=== PATIENT | female | born 1970 | race Caucasian/White ===

== ENCOUNTER 2019-05-23 08:36 | Inpatient (IN) ==
[2019-05-23] MEDS ORDERED: DILAUDID IV ONE ×6 (08:46→10:30)
[2019-05-23] MEDS ORDERED: ZOFRAN IM ONE (08:47)
[2019-05-23 09:12] LABS: BASO# 0.01 X1000 (0.0-0.2); BASO% 0.1 % (0.0-0.8); EOS# 0.03 X1000 (0.0-0.7); EOS% 0.4 % (0.0-10.0); HEMATOCRIT 36.9 % (37.0-47.0); HEMOGLOBIN 12.6 g/dL (12.0-16.0); LYMPH# 1.81 X1000 (1.2-3.4); LYMPH% 22.2 % (20.5-51.1); MCH 28.7 PG (27-31); MCHC 34.1 g/dL (33-37); MCV 84.1 FL (81-99); MONO# 0.52 X1000 (0.11-0.59); MONO% 6.4 % (1.7-9.3); MPV 8.8 FL (7.4-10.4); NEUT# 5.79 X1000 (1.4-6.5); NEUT% 70.9 % (42.2-75.2); PLT 434 X1000 (130-400); RBC 4.39 XMIL (4.2-5.4); WBC 8.16 X1000 (4.8-10.8)
[2019-05-23] MEDS ORDERED: ZOFRAN IV ONE (09:12)
[2019-05-23 09:28] LABS: AGAP 14; ALB/GLOB RATIO 1.4; ALBUMIN 4.5 g/dL (3.5-5.0); ALKALINE PHOSPHATASE 94 U/L (32-104); BUN 15 mg/dL (8-22); CALCIUM 9.1 mg/dL (8.8-10.2); CHLORIDE 100 mmol/L (98-107); COSMO 277; CREATININE 0.7 mg/dL (0.5-0.9); ESTIMATED GFR > 60; GLUCOSE 136 mg/dL (70-104); GOT 20 U/L (10-30); GPT 11 U/L (10-36); POTASSIUM 3.7 mmol/L (3.5-5.1); SODIUM 137 mmol/L (136-145); TCO2 23 mmol/L (25-35); TOTAL BILIRUBIN 0.34 mg/dL (0.20-1.00); TOTAL PROTEIN 7.8 g/dL (6.3-8.3)
--- NOTE | 2019-05-23 09:34 | PROVIDER DOCUMENTATION ---
HPI-General Adult - General Chief Complaint: Hip Injury Stated Complaint: fall Time Seen by Provider: 05/23/19 08:46 Source: patient Allergies/Adverse Reactions: Patient Allergies Allergy/AdvReac Type Severity Reaction Status Date / Time No Known Allergies Allergy Verified 05/23/19 09:14 Home Medications: Home Medication List Medication Instructions Recorded Confirmed Last Taken Type Gabapentin 600 mg PO TID 05/19/19 05/19/19 05/19/19 History Oxycodone HCl/Acetaminophen 1 ea PO Q6H PRN 05/19/19 05/19/19 3 Days Ago History [Oxycodone-Acetaminophen 10-325] ~05/16/19 Tamoxifen [Nolvadex] 20 mg PO DAILY 05/19/19 05/23/19 05/21/19 History - History of Present Illness -Gen Adult Nature of Presenting Problems: This is a 48yo female who presents via EMS after ground level fall. Per the patient and EMS the patient was walking up to her desk and then fell and bystanders heard a pop. The EMS reports that the hip did look disfigured at the time of arrival. The fall occurred at approximately 7:45am this morning. The patient denies any head injury. Location of Pain/Injury: reports: other (Hip) Pain Radiation: reports: no radiation Severity: reports: severe Onset/Duration: reports: 2 days ago Timing: reports: still present Context/Activities at Onset: reports: light activity (walking) Modifying Factors: improves with: movement (worse with movement) Associated Symptoms: reports: other (no bleeding or blood) Review of Systems - Adult - REVIEW OF SYSTEMS - ADULT Constitutional: reports: fever Eyes: denies: eye pain Ears, Nose, Mouth & Throat: denies: throat swelling Cardiovascular: denies: chest pain Gastrointestinal: denies: abdominal pain Genitourinary: denies: dysuria Neurological: denies: headache/migraines Psychiatric: denies: alcohol/drug dependence Hematologic/Lymphatic: reports: no symptoms reported, other (no bleeding noted) Past History - Adult - PAST MEDICAL HISTORY-ADULT Review of Records: reports: Old Records Reviewed Major Childhood Illnesses: reports: denies history Cardiovascular: reports: denies history Respiratory: reports: denies history Gastrointestinal: reports: denies history Genitourinary: reports: denies history Musculoskeletal: reports: denies history 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) Psychiatric: reports: anxiety Endocrine/Immune: reports: cancer (breast cancer) - IMMUNIZATION STATUS Childhood Immunizations: See Nurse Assessment Flu Vaccine: See Nurse Assessment - SOCIAL HISTORY Smoking: denies Substance Use: none/never (denies) Alcohol Use Frequency: never (denies) Physical Exam-General - CONSTITUTIONAL General Appearance: moderate distress - EYES Eyes: negative: scleral icterus - HEAD, EARS, NOSE, MOUTH & THROAT HENMT: normocephalic/atraumatic, moist mucous membranes - RESPIRATORY Respiratory: normal breath sounds - CARDIOVASCULAR Cardiovascular: tachycardia - GASTROINTESTINAL (ABDOMEN) Abdominal Exam: non tender, soft - MUSCULOSKELETAL Extremity: other (no gross deformity of the left hip noted, patient is able to move her left lower extremity and sensation is intact below the hip) - SKIN Integumentary: other (no gross skin opening noted) - NEUROLOGIC Neurologic: grossly normal - PSYCHIATRIC Psych/Mental Status: anxious Progress - PLAN OF CARE/RESULTS Progress/Plan/Lab Results: Vital Signs - 8 hr 05/23/19 08:53 Temperature 97.7 F Pulse Rate 122 H Respiratory Rate 17 Blood Pressure 119/101 O2 Sat by Pulse Oximetry 100 Laboratory Results - last 24 hr 05/23/19 05/23/19 08:50 08:50 WBC 8.16 RBC 4.39 Hgb 12.6 Hct 36.9 L MCV 84.1 MCH 28.7 MCHC 34.1 RDW Std Deviation 13.0 Plt Count 434 H MPV 8.8 Immature Gran % (Auto) 0.0 Neut % (Auto) 70.9 Lymph % (Auto) 22.2 [place] % (Auto) 6.4 Eos % (Auto) 0.4 Baso % (Auto) 0.1 Immature Gran # (Auto) 0.00 Neut # (Auto) 5.79 Lymph # (Auto) 1.81 [place] # (Auto) 0.52 Eos # (Auto) 0.03 Baso # (Auto) 0.01 Sodium 137 Potassium 3.7 Chloride 100 Carbon Dioxide 23 L Anion Gap 14 BUN 15 Creatinine 0.7 Estimated GFR/1.73 m2 > 60 BUN/Creatinine Ratio 21 Glucose 136 H Calculated Osmolality 277 Calcium 9.1 Total Bilirubin 0.34 AST 20 ALT 11 Alkaline Phosphatase 94 Total Protein 7.8 Albumin 4.5 Globulin 3.3 Albumin/Globulin Ratio 1.4 Orders Category Date Time Status XRAY PELVIS W/HIP 2-3VW LT [RAD] Stat Exams 05/23/19 08:49 Ordered CBC WITH ELECTRONIC DIFF [HEME] Stat Lab 05/23/19 08:50 Completed Chem22 [COMPREHENSIVE METABOLIC PANEL] [CHEM] Stat Lab 05/23/19 08:50 Received Hydromorphone [Dilaudid] Med 05/23/19 08:46 Discontinued 0.5 mg IV NOW ONE Hydromorphone [Dilaudid] Med 05/23/19 09:25 Discontinued 0.5 mg IV NOW ONE Ondansetron [Zofran] Med 05/23/19 08:47 Discontinued 4 mg IM NOW ONE Ondansetron [Zofran] Med 05/23/19 09:12 Discontinued 4 mg IV NOW ONE Result Diagrams: 05/23/19 08:50 05/23/19 08:50 - REASSESSMENT Reassessment #1 Status: unchanged (Patient with continued pain despite dilauded treatment, will continue to try pain management. Patient reports anxiety as well. Patient has chronic anxiety and did not take her paxil this morning. Will give low dose lorazepam. Discussed case with orthopedics who will see the patient, and d iscussed with hospitalist team who have accepted the patient.) Departure - Departure Date of Disposition Decision: 05/23/19 Time of Disposition Decision: 10:25 DIAGNOSIS: Hip fracture Qualifiers: Encounter type: initial encounter Fracture type: closed Laterality: left Qualified Code(s): S72.002A - Fracture of unspecified part of neck of left femur, initial encounter for closed fracture Disposition: ADMITTED INPATIENT 09 Certified Medical Emergency: Emergent Condition: Fair Referrals and Follow-Ups: Kendrick Hardin MD [Primary Care Provider] - - Critical Care Note This patient required my direct & personal management of CC.: No Attestation - Physician/ MARY ELLEN Attestation Patient care was provided by Advanced Practice Provider:: No The physician spent face to face time with patient:: Yes Advanced Practice Provider documentation review:: Supervising physician onsite and consulted in the evaluation and care of this patient. The physician did have a face to face encounter with the patient.
--- NOTE | 2019-05-23 09:49 | Diag Imaging Result Doc PS360 ---
EXAM: XRAY PELVIS W/HIP 2-3VW LT INDICATION: Fall TECHNIQUE: 3 views COMPARISON: None. FINDINGS: There is an acute fracture through the superior shaft of the left femur with significant varus angulation. A nondisplaced fracture line extends into the intertrochanteric region near the base of the lesser trochanter. No other fracture or dislocation is appreciated. There is soft tissue edema around the fracture. IMPRESSION: Fracture of the proximal femoral shaft as described. Electronically signed by Stefano Rose 05/23/2019 9:46 AM
--- NOTE | 2019-05-23 10:10 | Diag Imaging Result Doc PS360 ---
EXAM: CHEST-1 VIEW 05/23/2019 HISTORY: Fall TECHNIQUE: AP chest at 0943 COMMENT: There is a Port-A-Cath on the right with its tip in the right atrium. There are multiple healing rib fractures on the left. No evidence of pneumothorax or pleural fluid collection is present. The heart size and pulmonary vascularity are within normal limits. There are apparently bilateral breast implants. IMPRESSION: No evidence of acute pulmonary disease. Healing rib fractures on the left. Electronically signed by Dejon Bethea 05/23/2019 10:08 AM
[2019-05-23] MEDS ORDERED: ATIVAN IV ONE ×2 (10:19→15:23)
[2019-05-23] MEDS ORDERED: TYLENOL PO PRN (10:24)
[2019-05-23] MEDS ORDERED: ZOFRAN IV PRN (10:24)
[2019-05-23 11:24] LABS: CALCIUM 9.2 mg/dL (8.8-10.2)
[2019-05-23] MEDS ORDERED: DEMEROL IV ONE (11:30)
[2019-05-23] MEDS: DILAUDID IV PRN ×2 (11:47→13:53)
[2019-05-23] MEDS: NS 1,000 ML IV SCH (11:47)
[2019-05-23] MEDS: DURAGESIC 75 MICROGM/HR PATCH TD SCH (11:47)
--- NOTE | 2019-05-23 13:16 | HISTORY AND PHYSICAL ---
PRIMARY CARE PROVIDER: Dr. Lopez. PRIMARY ONCOLOGIST: Dr. Hardin. CHIEF COMPLAINT: Right hip pain. HISTORY OF PRESENT ILLNESS: Ms. Kenia Batista is a 48-year-old female with a medical history of left breast cancer with metastasis to the sternum, left hip, thoracic and lumbar spine, and the left rib area, along with skin and lymph nodes diagnosed in 2018. Claims to be cancer- free as of 03/16/2019. This is followed by Dr. Hardin. She did have chemo and she is on immunotherapy treatment currently. She is a very active person. 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 She is on chronic pain medication for that. Has issues with anxiety. Apparently around 3 and a half weeks ago, some time around April 29, she apparently had gotten on her son's bicycle that was too small. She felt her knee go out and developed pain from that. So, a week later she presented to [facility] on the 06 of May with these complaints. There, she had a pelvic CT that did not show any acute bony injury. It did show septal sclerosis in the region of a previous bony metastatic disease, but otherwise no fracture. She was sent home, re-presented to [facility] because despite all the pain medication she takes at home, she is still not having relief. On top of her Percocet and fentanyl patch, she was also taking Advil 600 mg every 6 hours with still no relief. She re-presented here at [facility] ER on the 19 of May with continued complaints. No imaging was performed. She was set up to see an orthopedic surgeon in [place]; she was unable to tell us who that was, who apparently told her it was a hip rotator strain due to the fact that no imaging showed fracture. She was walking today, this morning at around 0730 hours, when she heard a pop in the left hip and surrounding people also heard it. She went to the ground; it was painful. She was brought into the emergency department. Imaging of the left hip showed a fracture of the left proximal femoral shaft. Dr. Mcarthur was notified and she is going to be preop for surgical repair. It is noted on a nuclear bone scan at one point in time, she did have metastasis in the sternum of the left hip and also 1 spot in the left rib; that was November of 2017. Her chest x-ray at this time also shows healing left rib fracture, so it appears that she is going to be at risk for fractures in the areas where she had metastatic disease, which also includes the lumbar and the thoracic spine and the sternum. PAST MEDICAL HISTORY: 1. Left breast cancer with metastasis to the skin, lymph nodes, and the bone; it includes the sternum, left hip, left rib, thoracic lumbar region. This was hormone-induced cancer. Found cancer in October 2017 and found to be cancer-free March 2019 2. Anxiety. 3. 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 4. Likely chronic constipation. SURGICAL HISTORY: 1. Left breast biopsy. No surgical extraction of the breast cancer. 2. Right wrist cyst, removed. 3. Bilateral tubal ligation. 4. Breast augmentation prior to breast cancer diagnosis. 5. Right chest port. SOCIAL HISTORY: She lives at home with her 10-year-old and 13-year-old children. Her was disabled and ; so her kids receive benefits. She currently does not work. Her activity level is walking 8 miles per day. Denies tobacco, alcohol or illicit drug use. FAMILY HISTORY: Mother's side of the family is osteoporosis; her grandmother had osteoporosis. On the father's side, there was prostate cancer that was metastasized to the bone. ALLERGIES: No known drug allergies. HOME MEDICATIONS: 1. Fentanyl patch 75 mcg every 3 days. 2. Neurontin 600 mg p.o. t.i.d. 3. Tamoxifen 20 mg p.o. daily. 4. Percocet 10 one tab p.o. every 6 hours p.r.n. REVIEW OF SYSTEMS: Fourteen point review of systems are complete and now are negative, except for those mentioned above in the HPI. Pain is 10/10 left hip with some nausea associated; otherwise, no other complaints. PHYSICAL EXAMINATION: VITAL SIGNS: Temperature 98.7 degrees, heart rate 113, respiratory rate 18, blood pressure 146/91, O2 saturation 99% on room air. The patient is 5 feet 5 inches tall, 148 pounds. BMI is 24.6. GENERAL: Ms. Kenia Batista is a 48-year-old female. She is in severe pain. Has difficulty with conversation secondary to the pain she is experiencing, but she is oriented and is able answer questions appropriately. She does have severe anxiety at this time. HEENT: Atraumatic, normocephalic. Pupils equal, round, reactive to light. Extraocular movements intact. Mucous membranes are dry. Face is red. NECK: Trachea midline. CARDIOVASCULAR: S1, S2. Tachycardic rate and rhythm. No rubs, gallops, or murmurs. There is no lower extremity edema. She has +2 dorsalis and radial pulses. Negative JVD for carotid bruits. PULMONARY: Clear to auscultation. Bilateral breath sounds. No accessory muscle use or work of breathing noted. GI: Soft, nontender, nondistended. Positive bowel sounds x4. EXTREMITIES: Refuses to move her lower extremity secondary to the severe pain in the left lower extremity. Her foot is turned and leg is turned inward. Full range of motion of the upper extremities with 5/5 strength. NEUROLOGIC: A and O x3. Follows commands. Sensory is intact, but tingling and numb in her hands and feet. SKIN: Warm, dry, intact. LABORATORY DATA: White blood cells 8000, hemoglobin 12, hematocrit 36, platelet count 434. Sodium 137, potassium 3.7, BUN 15, creatinine 0.7, glucose 136, calcium 9.2, phosphorus is 2.0, bilirubin 0.34. AST 20, ALT 11, albumin is 4.5, PTH is 64. IMAGING STUDIES: Left hip x-ray, two to three-view, fracture of the proximal femoral shaft. Chest x-ray: No evidence of acute pulmonary disease. Apparently, there are multiple healing rib fractures on the left. ASSESSMENT AND PLAN: 1. Left hip fracture including the proximal femoral shaft, likely secondary to recent history of metastatic disease and osteoporosis. Will get a vitamin D level. Dr. Mcarthur is being consulted for surgical repair. She will be placed in Naylor's traction, bed rest, and will likely need physical therapy postoperative. 2. Acute pain on top of chronic pain syndrome. We will continue her fentanyl patch, her Percocet. Added Dilaudid intravenous as needed. Gave a 1-time dose of Demerol and is still having intractable pain currently. 3. Anxiety. She has gotten Ativan in the emergency room. She is asking for Valium. 4. History of left breast cancer with metastatic disease to the sternum, the left ribs, the left hip, the lumbar and the thoracic spine, apparently also to the skin and lymph nodes, but apparently she is cancer-free. Dr. Pillai has been following her. She is on tamoxifen and will continue that. 5. Chronic opioid use likely with chronic constipation. We will add a stool softener to her regimen. 6. Deep venous thrombosis prophylaxis. Will likely be on low-dose Lovenox and probably low-dose Xarelto, but that will be evaluated by Orthopedic Surgery. Dictated by CAREY Hernandes for Khang Cunningham MD cc: CAREY Hernandes MD Gregory S. Cheatham, MD Sammy Becdach, MD
[2019-05-23 14:26] LABS: URINE SOURCE CATH
[2019-05-23 14:29] LABS: BILIRUBIN URINE NEGATIVE (NEGATIVE); BLOOD URINE NEGATIVE (NEGATIVE); COLOR YELLOW; GLUCOSE URINE NEGATIVE (NEGATIVE); KETONE URINE NEGATIVE (NEGATIVE); LEUKOCYTES URINE NEGATIVE (NEGATIVE); NITRITE URINE NEGATIVE (NEGATIVE); PROTEIN URINE NEGATIVE (NEGATIVE); SP GRAVITY URINE 1.014; TURBIDITY URINE CLEAR (CLEAR); UR EPITHELIAL CELLS <10 /HPF (<10); URINE BACTERIA NEGATIVE /HPF; URINE RBC <10 /HPF (<10); URINE WBC <10 /HPF (<10); UROBILINOGEN URINE NORMAL (NORMAL)
[2019-05-23] MEDS ORDERED: DIPRIVAN 1% ONE (17:12)
[2019-05-23] MEDS ORDERED: KEFZOL 1 GM/D5W 1 GM/50 ML IVPB ONE (17:12)
[2019-05-23] MEDS ORDERED: FENTANYL ONE (17:14)
[2019-05-23] MEDS ORDERED: VERSED ONE (17:16)
[2019-05-23] MEDS ORDERED: SUFENTA ONE ×2 (17:45→18:44)
[2019-05-23] MEDS ORDERED: ZOFRAN ONE (18:06)
[2019-05-23] MEDS ORDERED: DECADRON ONE (18:06)
--- NOTE | 2019-05-23 18:25 | HISTORY AND PHYSICAL ---
ADDENDUM: I have seen and examined Ms. Sanders today. Ms. Sanders presented to the emergency department today because of left hip pain and swelling to the hip. She refers that for the past week, she has been having some pain to the left hip. She has been to the ER and she has even been to the [facility] where x-rays were done and shots were given into her left hip for pain control, but she still continues having pain. Apparently, today she was going to refill her medications. She was using a walker and she just had a popping sound in her left leg, and immediately she could just not make any more movement. Her hip started to swell. She came to the emergency department. She was evaluated and imaging studies revealed a left proximal femoral shaft fracture with significant virus angulation. The patient has been admitted to be evaluated by Orthopedics for further intervention. Ms. Sanders has a history of metastatic hormone sensitive breast cancer which has been successfully treated by Dr. Hardin. She has been told that she is currently cancer-free since March of this year. She is not on any medication for any other chronic medical pathologies. OBJECTIVE: Her vital signs are stable. Blood pressure is 123/83, pulse of 102, respirations 20, temperature 98.7 degrees. Physical exam positive is multiple tattoos on her skin. She also has bilateral breast implants, and remarkably the left proximal thigh is swollen, tender, looks deformed. The toes are able to move and there are normal pulses and normal skin coloration. Imaging studies have also been reviewed. Chest x-ray is unremarkable. Hip x-ray has been reviewed. The patient's labs have also been reviewed. ASSESSMENT: Working diagnosis will be: 1. Left proximal femoral shaft fracture with significant angulation. Orthopedics has been consulted. 2. History of metastatic breast cancer. The patient has been told that she is now cancer-free. 3. Some constipation, secondary to chronic opioid use. 4. Chronic pain syndrome. PERIOPERATIVE EVALUATION: Ms. Sanders does not have any chronic medical comorbidities except for her remote recently treated cancer-free breast cancer. She denies any chronic liver disease, renal or cardiac or lungs, and she is currently not having any chest pain no shortness of breath, no sign of congestive heart failure. She is currently not on any anticoagulation. Ms. Sanders is a low risk patient going for a moderate nonvascular orthopedic intervention. We recommend surgery to proceed. Please refer to the details of the H and P documented by the RADIATION THERAPIST in the chart. cc: Khang Cunningham MD
[2019-05-23] MEDS ORDERED: SALINE LOCK IV FLUID XX ONE (19:23)
[2019-05-23] MEDS ORDERED: ROMAZICON (DOSE) ONE ×2 (19:46)
--- NOTE | 2019-05-23 20:02 | ORTHOPAEDICS CONSULTATION ---
DATE: 05/23/2019 CHIEF COMPLAINT: Left hip pain. HISTORY OF PRESENT ILLNESS: Ms. Sanders is a 48-year-old female who presented to the emergency department this morning after she felt a pop in her leg and then she fell. She was diagnosed with a femur fracture and admitted per the Hospitalist Service. She has a pertinent past medical history of breast cancer with metastasis in multiple places. She has seen Dr. Hardin and has undergone a lot of chemotherapy, and right now, is no evidence of disease. She has been treated, it sounds like, with osteoporotic medication. She started hurting a lot in the hip over the past 2 weeks, has gone to the ER, and x-rays have all been normal, and then she broke this morning. PAST MEDICAL HISTORY: Left breast cancer with metastasis. She has been no evidence of disease since March 1019. PAST SURGICAL HISTORY: Left breast biopsy, right wrist cyst removal, bilateral tubal ligation, chest port. SOCIAL HISTORY: She denies any tobacco or alcohol use. FAMILY HISTORY: Positive for osteoporosis and prostate cancer. ALLERGIES: No known drug allergies. HOME MEDICATIONS: Fentanyl, Neurontin, tamoxifen, and Percocet. PHYSICAL EXAMINATION: General: A 48-year-old female, appears stated age. She is in some distress secondary to pain. Head and neck: Normocephalic, atraumatic. Respirations: Nonlabored. Cardiovascular: Regular rate. Abdomen: Nondistended. Extremities: Left lower extremity exam shows a lot of tenderness to palpation to the thigh. She does have good sensation to light touch to the toes, 2+ DP pulse. No skin ulcerations or abrasions seen anywhere. RADIOGRAPHS: Several views of the left hip show a subtrochanteric femur fracture. ASSESSMENT: Left subtrochanteric femur fracture. PLAN: I discussed with Ms. Sanders this is more than likely an atypical osteoporotic/metastatic femur fracture. More than likely, the bone metastases weakened in this area and the stresses over time just caught up and she ended up breaking before she fell. So, I discussed with her about trochanteric femoral nailing. I discussed with her the procedure, risks, benefits, potential complications. Risks include, but are not limited to, infection, wound healing problems, damage to nerves, arteries, veins, numbness, malunion, nonunion, hardware-related issues, continued pain, DVT, and anesthesia-related risks. After discussing these with the patient, she expressed understanding and wished to proceed. I did specifically discuss with her that it is going to be tough to heal this bone since it is already atypical and abnormal. We will plan on getting things done today. She is n.p.o. now., so we will plan on going to the OR now. cc: Stepan Mcarthur MD
[2019-05-23] MEDS: DILAUDID ONE ×4 (20:06→20:22)
[2019-05-23] MEDS: PHENERGAN ONE ×2 (20:16→20:22)
--- NOTE | 2019-05-23 21:02 | OPERATIVE NOTE ---
PROCEDURE DATE: 05/23/2019 PREOPERATIVE DIAGNOSIS: Left subtrochanteric femur fracture. POSTOPERATIVE DIAGNOSIS: Left subtrochanteric femur fracture. PROCEDURE: 1. Left trochanteric femoral nailing. 2. 22 modifier for difficult case. SURGEON: Dr. Stepan Mcarthur. ARMAMENT MECHANIC: CAREY Gomez, who was an integral part of the case, helping with all aspects of the case, helping to increase our OR efficiency greatly. ANESTHESIA: General with LMA. BLOOD LOSS: 200 mL. IMPLANT: 11 x 360 trochanteric femoral nail, Synthes, 90 helical blade. DISPOSITION: To PACU, hemodynamically stable. INDICATION FOR PROCEDURE: Ms. Sanders is a 48-year-old female with a history of breast cancer. Had a pathologic femur fracture today. She came in this morning and was admitted per the Medicine service. I discussed with her about operative intervention. She expressed understanding and wished to proceed. DESCRIPTION OF PROCEDURE: Ms. Sanders was identified in the preoperative holding area. The left hip was marked out as the correct surgical site. She was then wheeled into the operating room, kept supine on her own bed. She was induced under general anesthesia. LMA was placed. She was then moved to the OR table. Some traction was placed on the left lower extremity. Left lower extremity was then prepped with chlorhexidine gluconate scrub and then ChloraPrep, and draped in a normal sterile fashion. Surgical pause was performed. We identified the correct patient, correct side, and the correct procedure. Preop antibiotics were given. I started with an incision just proximal to the greater trochanter. Dissection was carried down to the deep fascia. I got my starting position with my guidewire. I got into good position and then I reamed with my opening reamer. It was quite difficult to get that reduction. I was able though to get some good traction on the leg, push up on the distal fragment, down on the proximal, to the line things up. I then passed my ball-tip guidewire down and measured it to a size 360. With holding the fracture reduced, I was able to then ream, starting with an 8.5 opening reamer, and she did have a pretty tight canal. I reamed up to a size 12.5, and there were actually some good reamings at the fracture site which you could see on fluoroscopic imaging. I was then able to pass the trochanteric femoral nail down. She was pretty externally rotated which was on that proximal fragment, which was tough to get my alignment, and so it took several tries of trying to get the alignment just perfect, but we were able to get the nail down and have the foot externally rotated to match her external rotation of the proximal fragment, and that lined up the cortices actually fairly well. At that point, I was then able to get the nail all the way down where we needed it. I then placed the guidewire up the femoral neck into the head. We cheated it a little posterior and inferior so there would be no cut-out, and that bone felt actually really good. I then put the helical blade in. I then took the outrigger guide off. We then came distal, felt our rotation, and it was actually really good, and placed 2 interlocking screws distally, 1 in the dynamic slot and 1 in the nondynamic hole. At this point, we closed everything in a layered fashion, 0 Vicryl for the deep layers, 2-0 Vicryl for the subcutaneous tissue, and nylon for her skin and flores. Final images were taken right before closure though which showed really good alignment overall, and good position of the fracture. We were able to let off the traction before we put the distal screws in, and get really good bony contact at the fracture site. There was no gapping there. Island dressings were then applied. She was then moved to her regular bed. Her rotation was checked with her traction boots off and just laying flat on the bed, and her rotation was exactly equal and her length looked good as well. She was then awoken from general anesthesia, moved to her own bed, and taken to PACU in stable condition. Postop, she will be weightbear as tolerated to the left lower extremity, and I will see her in the morning. cc: Stepan Mcarthur MD
[2019-05-23] MEDS ORDERED: CALMOSEPTINE OINTMENT TOP PRN (22:31)
[2019-05-23] MEDS: NEURONTIN PO SCH (22:35)
[2019-05-24] MEDS: NS 1,000 ML IV SCH ×4 (01:02→17:17)
[2019-05-24] MEDS: KEFZOL 1 GM/D5W 1 GM/50 ML IVPB IV SCH ×3 (01:02→17:23)
[2019-05-24] MEDS: PERICOLACE PO SCH ×4 (01:03→20:01)
[2019-05-24] MEDS: NEURONTIN PO SCH ×5 (01:03→20:01)
[2019-05-24] MEDS: DILAUDID IV PRN ×5 (02:07→20:01)
[2019-05-24] MEDS: PERCOCET-10 PO PRN ×4 (02:13→18:27)
[2019-05-24] MEDS: PHENERGAN IV PRN ×3 (02:44→20:09)
[2019-05-24 06:26] LABS: INR 1.28; PROTIME 16.2 Seconds (11.0-16.0)
[2019-05-24 06:27] LABS: PTT 29.5 Seconds (22.3-41.8)
--- NOTE | 2019-05-24 06:50 | ORTHOPAEDICS PROGRESS NOTE ---
DATE: 05/24/2019 SUBJECTIVE: Ms. Sanders is lying in bed this morning, resting well. OBJECTIVE: Left Lower Extremity Examination: Dressings are all clean, dry, and intact. She is able to dorsiflex and plantar flex the foot very well. She has good sensation to light touch to the foot. ASSESSMENT: Status post left trochanteric femoral nailing for a subtrochanteric femur fracture. PLAN: I think Ms. Sanders is doing well. She is going to be weightbearing as tolerated to the left lower extremity. She will work with physical therapy today, getting up and moving out of the bed. We will continue to follow. cc: Stepan Mcarthur MD
[2019-05-24 06:54] LABS: AGAP 8; ALB/GLOB RATIO 1.4; ALBUMIN 3.2 g/dL (3.5-5.0); ALKALINE PHOSPHATASE 67 U/L (32-104); BUN 12 mg/dL (8-22); CALCIUM 7.1 mg/dL (8.8-10.2); CHLORIDE 106 mmol/L (98-107); COSMO 279; CREATININE 0.5 mg/dL (0.5-0.9); ESTIMATED GFR > 60; GLUCOSE 124 mg/dL (70-104); GOT 24 U/L (10-30); GPT 9 U/L (10-36); POTASSIUM 3.7 mmol/L (3.5-5.1); SODIUM 139 mmol/L (136-145); TCO2 25 mmol/L (25-35); TOTAL BILIRUBIN 0.34 mg/dL (0.20-1.00); TOTAL PROTEIN 5.5 g/dL (6.3-8.3)
[2019-05-24] MEDS: LOVENOX SUBQ SCH (06:59)
[2019-05-24 07:28] LABS: HEMATOCRIT 28.8 % (37.0-47.0); HEMOGLOBIN 9.5 g/dL (12.0-16.0); LYMPH# 1.39 X1000 (1.2-3.4); LYMPH% 17.3 % (20.5-51.1); MCH 28.3 PG (27-31); MCV 85.7 FL (81-99); MONO# 0.72 X1000 (0.11-0.59); MONO% 8.9 % (1.7-9.3); MPV 8.6 FL (7.4-10.4); NEUT# 5.94 X1000 (1.4-6.5); NEUT% 73.8 % (42.2-75.2); PLT 283 X1000 (130-400); RBC 3.36 XMIL (4.2-5.4); RDW 13.2 % (11.5-14.5); WBC 8.05 X1000 (4.8-10.8)
[2019-05-24] MEDS: PERIDEX MT SCH ×3 (07:56→21:30)
[2019-05-24] MEDS: NOLVADEX PO SCH ×2 (07:56→09:41)
[2019-05-24] MEDS: OXY IR PO PRN ×2 (08:17→16:20)
[2019-05-24] MEDS ORDERED: CALMOSEPTINE OINTMENT TOP PRN (08:27)
[2019-05-24] MEDS: SODIUM CHLORIDE 0.9% INJ PRN ×2 (09:28→20:10)
--- NOTE | 2019-05-24 13:15 | PROGRESS NOTE ---
DATE: 05/24/2019 SUBJECTIVE: This morning, Ms. Sanders referred to be doing okay. She was, for the most part, sleeping during the conversation. Per the nursing staff, she was hurting a lot prior to my arrival, and they had given her some pain medication, and it looks like she was just sleeping from that. OBJECTIVE: Vital Signs: Stable with a blood pressure of 137/87, pulse of 107, respirations 17, temperature 99.4 degrees. Physical exam is unremarkable. General: Ms. Sanders is a 48-year-old female. She was in bed, sleeping. No distress. HEENT: Mucosa is pink and moist. Chest: Clear to auscultation. Cardiovascular: Regular rate and rhythm. Abdomen: Soft. Extremities: No pedal edema. The left thigh continues to be minimally swollen, but it does not look as deformed as yesterday. There is a new sterile dressing over the orthopedic incision site. LABORATORY DATA: WBC is 8.05, hemoglobin is 9.5, platelet count of 283,000. Chemistry is also reviewed and unremarkable. PROCEDURES: The patient underwent surgery yesterday, a left trochanteric femur nailing was done by Dr. Mcarthur. ASSESSMENT: 1. Left subtrochanteric femoral shaft fracture with angulation. The patient is status post femoral nailing by Dr. Mcarthur. Today is day 1 postoperative. The patient seems to be fairly okay, still in a lot of pain, but feels much better. 2. History of metastatic breast cancer. The patient has been declared cancer-free. Follows up with Dr. Hardin. 3. Chronic pain syndrome. The patient is on a lot of opioid medications at home. 4. Constipation secondary to chronic opioid use. Will continue with bowel regimen. In general, Ms. Sanders is day 1 postoperative. She has not been seen by Physical Therapy yet. We are going to continue with the pain management, and wait for Physical Therapy evaluation. cc: Khang Cunningham MD
--- NOTE | 2019-05-24 20:09 | HEMO/ONC CONSULTATION ---
DATE: 05/24/2019 ADMITTING PHYSICIAN: Dr. Cunningham. REQUESTING PHYSICIAN: Dr. Cunningham. We appreciate this consult. CHIEF COMPLAINT: Metastatic breast cancer. HISTORY OF PRESENT ILLNESS: Ms. Kenia Sanders is a 48-year-old, female, well known to Dr. Hardin with a history of metastatic breast cancer stage IV, triple positive. She is currently on Perjeta and Herceptin as well as tamoxifen. Her next dose is due 06/07/2019. The patient was seen in clinic the day of admission secondary to severe left hip pain. She reports that she had presented to the emergency department at [facility] twice, as well as to an orthopedic physician. The patient states that she was told that her hip x-ray was normal and received no treatment. The patient continued to have a severe limp as well as significant pain. She presented to clinic for followup and while walking in to our office, she had a fall with a traumatic injury. 911 was called and the patient was transferred to [facility], where she was admitted secondary to left hip fracture as well as left proximal femoral fracture. Dr. Mcarthur was consulted and the patient underwent surgical repair. We are consulted as the patient is well known to us with a history of metastatic breast cancer. PAST MEDICAL HISTORY: 1. Metastatic breast cancer, triple positive, stage IV. 2. Chronic pain syndrome. 3. Anxiety. 4. Chronic constipation. PAST SURGICAL HISTORY: 1. Left breast biopsy. 2. Right wrist cyst removal. 3. Bilateral tubal ligation. 4. Breast augmentation prior to breast cancer diagnosis. 5. Right chest port placement. SOCIAL HISTORY: The patient denies tobacco, alcohol, or illicit drugs. FAMILY HISTORY: The patient has a history of prostate cancer in her father. Additionally, the patient has a history of osteoporosis in her mother and grandmother. MEDICATIONS ON ADMISSION: 1. Fentanyl patch. 2. Neurontin. 3. Tamoxifen. 4. Percocet. ALLERGIES: The patient has no known drug allergies. REVIEW OF SYSTEMS: A 14 point review of systems was obtained and is negative except as mentioned in the HPI. PHYSICAL EXAMINATION: General: Ms. Sanders is a pleasant 48-year-old female, lying supine in bed in no immediate distress. Vital Signs: Temperature 99.4 degrees, blood pressure 137/87, heart rate 107, respirations 17, O2 saturation is 100% on 2 L nasal cannula O2. HEENT: Normocephalic, atraumatic. Mucous membranes slightly pale and moist. Sclerae are anicteric. Extraocular movements intact. Neck: Supple. Lungs: Clear to auscultation bilaterally. Chest expansion is equal bilaterally. CV: S1, S2 is heard without murmur, rub, or gallop. Abdomen: Nondistended. Extremities: No clubbing, cyanosis, or edema. Dermatologic: No rashes, bruises, or lesions. Neurologic: The patient is awake, alert, and oriented x3. She has no focal deficit. LABORATORY DATA: Hemoglobin 9.5, hematocrit 28.8, white blood cell count is 8.05, platelets 283,000. Sodium 139, potassium 3.7, chloride 106, CO2 is 25, BUN 12, creatinine 0.5, and glucose is 124. Calcium is 7.1. ASSESSMENT AND PLAN: 1. Metastatic breast cancer, stage IV, triple positive, on Perjeta and Herceptin as well as tamoxifen. Next dose is due 06/07/2019. 2. Left hip fracture, status post surgical repair by Dr. Mcarthur. 3. Acute on chronic pain, per hospitalist. 4. Anxiety, per hospitalist. 5. We will follow along with you and make further recommendations pending outcomes. The above reflects the history, exam, assessment, and plan of Dr. Hardin. Dictated by CAREY Gaitan for Kendrick Hardin MD cc: CAREY Gaitan MD
[2019-05-25] MEDS: DILAUDID IV PRN ×5 (00:38→21:17)
[2019-05-25] MEDS: NS 1,000 ML IV SCH ×3 (00:41→14:51)
[2019-05-25] MEDS: PERCOCET-10 PO PRN ×4 (02:40→21:16)
[2019-05-25] MEDS: SODIUM CHLORIDE 0.9% INJ PRN ×2 (02:54→17:05)
[2019-05-25] MEDS: PHENERGAN IV PRN ×3 (02:54→17:05)
[2019-05-25] MEDS: LOVENOX SUBQ SCH (06:12)
[2019-05-25 07:03] LABS: HEMATOCRIT 30.1 % (37.0-47.0); HEMOGLOBIN 9.7 g/dL (12.0-16.0)
[2019-05-25] MEDS: PERIDEX MT SCH ×2 (08:11→21:16)
[2019-05-25] MEDS: PERICOLACE PO SCH ×2 (08:11→21:17)
[2019-05-25] MEDS: OXY IR PO PRN ×2 (08:11→17:05)
[2019-05-25] MEDS: NEURONTIN PO SCH ×3 (08:12→21:17)
[2019-05-25] MEDS: NOLVADEX PO SCH (08:21)
--- NOTE | 2019-05-25 14:15 | ORTHOPAEDICS PROGRESS NOTE ---
DATE: 05/25/2019 SUBJECTIVE: Ms. Sanders is lying in bed this morning. Overall doing okay. She is complaining of a pretty good bit of pain. OBJECTIVE: Left lower extremity exam, dressings are clean, dry, and intact. She is neurovascularly intact. Left lower extremity. Leg length looked good. ASSESSMENT: Status post left trochanteric femoral nailing for subtrochanteric femur fracture. PLAN: Ms. Sanders is weight bear as tolerated, left lower extremity. I did encourage her to start getting out of bed, working on walking with physical therapy, and sitting up for all meals. We will continue to follow from orthopedic standpoint. cc: Stepan Mcarthur MD
--- NOTE | 2019-05-25 19:39 | PROGRESS NOTE ---
DATE: 05/25/2019 SUBJECTIVE: This patient is still complaining of right lower extremity pain, especially hip area. She has a left subtrochanteric femoral fracture status post intramedullary nailing postoperative day #2. She seems to be doing okay. She is still complaining of pain. We will continue with pain medication. I talked to the adoption social worker about physical therapy and rehabilitation as an outpatient, and basically the patient has probably 2 options, to go to an outpatient rehab center or home health with physical therapy at home. I discussed the case with the patient, and she decided that probably she will go home with physical therapy at home. OBJECTIVE: Vital Signs: Temperature 98.5 degrees, pulse 117, respiratory rate 20, blood pressure 112/71, oxygen saturation 96% on 2 L of nasal cannula. HEENT: Head normocephalic. No trauma. PERRLA. Neck: Supple. No JVD. No masses. Central trachea. Chest: Clear to auscultation. No wheezing. No rales. Abdomen: Soft, nontender, nondistended. No hepatosplenomegaly. Extremities: Left hip/thigh edema and pain to palpation and mobilization but no deformity, no neurovascular issues. The wound looks clean, dry, and intact. Neurological: Alert and oriented x3. No focal deficits. LABORATORY DATA: Hemoglobin 9.7, hematocrit 30.1. ASSESSMENT AND PLAN: 1. Left subtrochanteric femur fracture status post left trochanteric femoral nailing postoperative day #2. The patient seems to be doing better. Physical Therapy and Occupational Therapy have been consulted. Probably this patient will be discharged in the next 24 to 48 hours, likely is going to be home with physical therapy at home. 2. History of metastatic breast cancer, follow up with Dr. Hardin as an outpatient. Apparently, she has been declared cancer-free. 3. Chronic pain syndrome. The patient is actually on home medications for pain, opioids. 4. Constipation secondary to chronic opioid use. Continue with bowel regimen. cc: Ash Tran MD
[2019-05-26] MEDS: NS 1,000 ML IV SCH ×2 (00:54→04:27)
[2019-05-26] MEDS: DILAUDID IV PRN ×6 (04:23→21:42)
[2019-05-26] MEDS: PERCOCET-10 PO PRN ×4 (04:26→18:58)
[2019-05-26] MEDS: OXY IR PO PRN ×3 (06:53→17:07)
[2019-05-26] MEDS: PHENERGAN IV PRN ×3 (06:53→21:36)
[2019-05-26] MEDS: LOVENOX SUBQ SCH (07:05)
[2019-05-26 07:13] LABS: HEMATOCRIT 26.1 % (37.0-47.0); HEMOGLOBIN 8.5 g/dL (12.0-16.0)
[2019-05-26 07:44] LABS: AGAP 5; BUN 6 mg/dL (8-22); CHLORIDE 108 mmol/L (98-107); COSMO 282; CREATININE 0.4 mg/dL (0.5-0.9); ESTIMATED GFR > 60; GLUCOSE 121 mg/dL (70-104); POTASSIUM 3.3 mmol/L (3.5-5.1); SODIUM 142 mmol/L (136-145); TCO2 29 mmol/L (25-35)
[2019-05-26] MEDS: PERIDEX MT SCH ×2 (08:00→21:37)
[2019-05-26] MEDS: PERICOLACE PO SCH ×2 (08:00→21:37)
[2019-05-26] MEDS: NEURONTIN PO SCH ×3 (08:00→21:36)
[2019-05-26] MEDS: NOLVADEX PO SCH (08:02)
[2019-05-26 08:12] LABS: CALCIUM 6.9 mg/dL (8.8-10.2)
[2019-05-26] MEDS ORDERED: KLOR-CON PO ONE (09:10)
--- NOTE | 2019-05-26 13:11 | PROGRESS NOTE ---
DATE: 05/26/2019 SUBJECTIVE: This patient is still complaining of left lower extremity pain, 10/10, especially in the hip area and thigh. She had a left subtrochanteric femur fracture status post intramedullary nailing, postoperative day #3. The plan is to discharge this patient tomorrow with home health and physical therapy at home. She has refused to go to a rehab center and/or go to an outpatient rehab. She has a tolerance to opioids because she has been on fentanyl patch and also Percocet on a daily basis. OBJECTIVE: Vital Signs: Temperature 97.7 degrees, pulse 105, respiratory rate 18, blood pressure 113/70, and oxygen saturation 100% on 2 L of nasal cannula. HEENT: Head normocephalic. No trauma. PERRLA. Neck: Supple. No JVD. No masses. Central trachea. Chest: Clear to auscultation. No wheezing. No rales. Abdomen: Soft, nontender. Nondistended. No hepatosplenomegaly. Extremities: Left hip and thigh edema and pain to palpation and mobilization, but no deformity. No neurovascular issues. The wound looks clean, dry, and intact. Neurological: Alert and oriented x3. No focal deficits. LABORATORY: Hemoglobin 8.5 and hematocrit 26.1. Sodium 142, potassium 3.3, chloride 108, bicarbonate 29, BUN 6, creatinine 0.4, glucose 121 and calcium 6.9. ASSESSMENT AND PLAN: 1. Left subtrochanteric femur fracture status post left trochanteric femoral nailing postoperative day #3. This patient is complaining of severe pain today, 10/10. She has not been getting up too much and/or walking with physical therapy too much so we will try to do that today. She has been refusing to go to a rehab center and/or outpatient rehab. She wants to go home with physical therapy at home. We will provide a walker and a bedside commode. 2. History of metastatic breast cancer followed by Dr. Hardin as an outpatient. Apparently, she has been declared cancer-free, she has a chronic pain syndrome and actually she takes medications at home for that including fentanyl patch and Percocet so she has a tolerance for this kind of medications. 3. Chronic pain syndrome as above. 4. Constipation. Secondary to chronic opioid abuse. Continue with bowel regimen. cc: Ash Tran MD
[2019-05-26] MEDS: DURAGESIC 75 MICROGM/HR PATCH TD SCH (14:02)
[2019-05-27] MEDS: OXY IR PO PRN ×2 (00:18→03:53)
[2019-05-27] MEDS: PERCOCET-10 PO PRN ×6 (00:19→22:08)
[2019-05-27] MEDS ORDERED: BLISTEX MEDICATED BERRY LIP BALM TOP PRN (02:12)
[2019-05-27] MEDS: DILAUDID IV PRN (02:27)
[2019-05-27] MEDS: PHENERGAN IV PRN ×2 (03:53→18:11)
[2019-05-27] MEDS: LOVENOX SUBQ SCH (05:55)
[2019-05-27 06:44] LABS: BASO# 0.02 X1000 (0.0-0.2); BASO% 0.4 % (0.0-0.8); EOS# 0.25 X1000 (0.0-0.7); EOS% 4.9 % (0.0-10.0); HEMATOCRIT 22.3 % (37.0-47.0); HEMOGLOBIN 7.3 g/dL (12.0-16.0); LYMPH# 1.59 X1000 (1.2-3.4); LYMPH% 31.3 % (20.5-51.1); MCH 28.2 PG (27-31); MCHC 32.7 g/dL (33-37); MCV 86.1 FL (81-99); MONO# 0.65 X1000 (0.11-0.59); MONO% 12.8 % (1.7-9.3); MPV 8.6 FL (7.4-10.4); NEUT# 2.57 X1000 (1.4-6.5); NEUT% 50.6 % (42.2-75.2); PLT 277 X1000 (130-400); RBC 2.59 XMIL (4.2-5.4); WBC 5.08 X1000 (4.8-10.8)
[2019-05-27 06:53] LABS: AGAP 7; BUN 4 mg/dL (8-22); CALCIUM 7.1 mg/dL (8.8-10.2); CHLORIDE 109 mmol/L (98-107); COSMO 287; CREATININE 0.4 mg/dL (0.5-0.9); ESTIMATED GFR > 60; GLUCOSE 119 mg/dL (70-104); POTASSIUM 3.3 mmol/L (3.5-5.1); SODIUM 145 mmol/L (136-145); TCO2 29 mmol/L (25-35)
[2019-05-27] MEDS ORDERED: KLOR-CON PO ONE (08:04)
--- NOTE | 2019-05-27 09:01 | PROGRESS NOTE ---
DATE: 05/27/2019 SUBJECTIVE: This patient is resting comfortably in bed. She is still complaining of left lower extremity pain. She has a left subtrochanteric femur fracture, status post intramedullary nailing, postoperative day number 4. Her hemoglobin dropped from 8.5 to 7.3. I will recheck her hemoglobin in the afternoon around 2 p.m. Also her blood pressure dropped during the night to the 90s. At this moment, I rechecked the blood pressure and is around the high 100s. She has no dizziness, no chest pain, no shortness of breath. She is slightly tachycardic. Because of the low blood pressure, I will hold the oxycodone and also the Dilaudid. I will continue with basically her home medications which are the fentanyl patch and her Percocet. OBJECTIVE: Vital Signs: This is at 4 a.m. Temperature 99.5 degrees, pulse 100, respiratory rate 14, blood pressure 197/62, oxygen saturation 100% on room air. HEENT: Head normocephalic, no trauma, PERRLA. Neck: Supple. No JVD. No masses. Central trachea. Chest: Clear to auscultation. No wheezing. No rales. Abdomen: Soft, nontender, nondistended. No hepatosplenomegaly. Extremities: Left lower extremity edema, mostly in the thigh area, left hip is painful to palpation and mobilization. She moves all 4 extremities spontaneously. She is able to move her toes on the right side as well left lower extremity. No signs of neurovascular issues. The wound looks clean and is covered with a dressing. Neurological: This patient is alert. She is oriented x3. No focal deficits. LABORATORY: WBC 5.0, hemoglobin 7.3, hematocrit 22.3, platelets 277,000. Sodium 145, potassium 3.3, chloride 109, bicarbonate 29, BUN 4, creatinine 0.4, glucose 119, calcium 7.1. ASSESSMENT AND PLAN: 1. Left subtrochanteric femur fracture, status post left trochanteric femoral nailing, postoperative day number 4. This patient still complaining of pain in that area, but she seems to be moving a bit more compared with yesterday. She refused to go to a rehab center and/or outpatient rehab. She wants to go home with physical therapy at home. We will provide a walker and a bedside commode for her. 2. Anemia, likely due to acute blood loss. Her hemoglobin has been dropping, initially was 12.6, then dropped to 9.7, yesterday was 8.5, and today 7.3. I will get a new hemoglobin and hematocrit this afternoon with anemia workup. Also, I will transfuse this patient if needed. 3. Hypokalemia. I will replace the potassium. 4. Hypotension. At this moment, her blood pressure is being rechecked at the bedside. It is in the high 100s. I will hold the IV treatment, Dilaudid, and also the oxycodone. I will continue with Percocet, which is her home medication, and the fentanyl patch to see how she does. 5. History of metastatic breast cancer, followed by Dr. Hardin as an outpatient. Apparently she has been declared cancer free. She has a chronic pain syndrome, and actually she takes medication at home for that including fentanyl patch and Percocet, so likely she has a really high tolerance for this kind of medications/opioids. 6. Chronic pain syndrome, as above. 7. Constipation. She is having bowel movements. cc: Ash Tran MD
[2019-05-27] MEDS: PERICOLACE PO SCH ×2 (09:07→20:38)
[2019-05-27] MEDS: PERIDEX MT SCH ×2 (09:08→20:39)
[2019-05-27] MEDS: NEURONTIN PO SCH ×3 (09:08→20:39)
[2019-05-27] MEDS: NOLVADEX PO SCH (09:08)
--- NOTE | 2019-05-27 12:20 | ORTHOPAEDICS PROGRESS NOTE ---
DATE: 05/27/2019 PHYSICAL EXAM: Patient is currently resting comfortably in bed. Does have discomfort with gentle movement of the left lower extremity. Her dressing is intact. She has active dorsiflexion and plantar flexion. She is grossly neurovascularly intact. IMPRESSION: Postoperative day #3 status post intramedullary nailing of the left femur. PLAN: At this point, patient will continue with weightbearing as tolerated left lower extremity. [facility] has been consulted for discharge planning. We will be available if needed. She will follow up with Dr. Mcarthur after discharge, approximately 12 to 14 days postoperatively for staple removal. cc: Nino Ugalde MD
[2019-05-27 14:12] LABS: HEMATOCRIT 24.8 % (37.0-47.0); HEMOGLOBIN 8.2 g/dL (12.0-16.0)
[2019-05-27 14:38] LABS: IRON SATURATION 12 %; TIBC 178 ug/dL; TOTAL IRON 22 ug/dL (49-151); UNBOUND IRON 156 ug/dL (112-346)
[2019-05-27 14:54] LABS: FERRITIN 117 ng/mL (13-150)
[2019-05-27] MEDS: SODIUM CHLORIDE 0.9% INJ PRN (18:11)
[2019-05-27] MEDS ORDERED: DILAUDID IV ONE (19:59)
[2019-05-28] MEDS: PERCOCET-10 PO PRN ×3 (02:20→10:15)
[2019-05-28] MEDS: PHENERGAN IV PRN (02:21)
[2019-05-28] MEDS: LOVENOX SUBQ SCH (06:14)
[2019-05-28 06:47] LABS: BASO# 0.03 X1000 (0.0-0.2); BASO% 0.5 % (0.0-0.8); EOS# 0.23 X1000 (0.0-0.7); EOS% 3.8 % (0.0-10.0); HEMATOCRIT 25.4 % (37.0-47.0); HEMOGLOBIN 8.2 g/dL (12.0-16.0); LYMPH# 1.32 X1000 (1.2-3.4); LYMPH% 21.6 % (20.5-51.1); MCH 27.9 PG (27-31); MCHC 32.3 g/dL (33-37); MCV 86.4 FL (81-99); MONO# 0.64 X1000 (0.11-0.59); MONO% 10.5 % (1.7-9.3); MPV 8.4 FL (7.4-10.4); NEUT# 3.88 X1000 (1.4-6.5); NEUT% 63.6 % (42.2-75.2); PLT 361 X1000 (130-400); RBC 2.94 XMIL (4.2-5.4); RDW 13.3 % (11.5-14.5)
[2019-05-28 07:13] LABS: AGAP 6; BUN 6 mg/dL (8-22); CALCIUM 7.4 mg/dL (8.8-10.2); CHLORIDE 106 mmol/L (98-107); COSMO 278; CREATININE 0.5 mg/dL (0.5-0.9); ESTIMATED GFR > 60; GLUCOSE 108 mg/dL (70-104); SODIUM 140 mmol/L (136-145); TCO2 28 mmol/L (25-35)
[2019-05-28 07:53] VITALS: BP 108/70
[2019-05-28] MEDS: PERICOLACE PO SCH (10:16)
[2019-05-28] MEDS: NEURONTIN PO SCH (10:16)
[2019-05-28] MEDS: NOLVADEX PO SCH (10:16)
[2019-05-28] MEDS: PERIDEX MT SCH (10:17)
--- NOTE | 2019-05-28 14:19 | DISCHARGE SUMMARY ---
ADMISSION DATE: 05/23/2019 DISCHARGE DATE: 05/28/2019 DISCHARGE DIAGNOSES: 1. Left subtrochanteric femur fracture status post left trochanteric femoral nailing, postoperative day #5. 2. Anemia, likely due to acute blood loss. 3. Hypokalemia, resolved. 4. Hypotension, resolved. 5. History of metastatic breast cancer followed by Dr. Hardin. 6. Chronic pain syndrome. 7. Constipation. PROCEDURES PERFORMED: 1. Hip/pelvic x-ray dated 05/23/2019. Impression: Fracture of the proximal femur shaft. 2. Chest x-ray dated 05/23/2019. Impression: No evidence of acute pulmonary disease, healing rib fractures on the left. 3. Left trochanteric femoral nailing due to left subtrochanteric femur fracture dated 05/23/2019. HOSPITAL COURSE: 48-year-old female with a past medical history of breast cancer with metastasis to the sternum, left hip, and thoracic and lumbar spine, left rib area along with [place] and lymph nodes diagnosed in 2018. Claims to be cancer-free as of 03/16/2019. She has been followed by Dr. Hardin as an outpatient, and she was admitted to this hospital on 05/23/2019. 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 Apparently, a few weeks before admission, probably 3-1/2 weeks before admission, apparently she had gotten on her son's bicycle, and she felt her knee go out and developed pain from that. Later she presented to [facility] on the 05/06/2019 with this complaint[address] Pelvis CT scan did not show any acute bony abnormality. It did show septal sclerosis in the region of a previous bony metastatic disease but otherwise no fracture. She was sent home, and she presented again to [facility] despite all the pain medication that she takes at home because she was not having relief. She is on Percocet and fentanyl patch. Also, she was taking Advil, but she still was in pain. No images were performed in the ER on 05/19/2019. She was set up to see an orthopedic surgeon in [place]. She was unable to say her name at this time. The day of admission she was walking around 7:30 a.m., and she heard a pop in the left hip, and surrounding people also heard that. She went to the ground. It was really painful. She was brought to the emergency department. Imaging showed a left hip fracture, actually at the level of the left proximal femoral shaft. Orthopedic Surgery took this patient to the OR, and they placed a left trochanteric femoral nailing due to her left subtrochanteric femur fracture. Then she was sent back to the medical floor. She was placed on physical therapy. We noticed that her blood pressure started dropping, but probably that was related to pain medication because on top of IV narcotics, she was on also the fentanyl patch and also Percocet. So when the blood pressure started to drop, I stopped the IV morphine and also oxycodone. I continued with her home medications, and she was doing much better. The blood pressure was always above 100. Hemoglobin dropped to 7.5, but then I repeated it twice, and it was higher than that, 8.2 x2. Electrolytes were replaced as well. She is still complaining of pain, but the pain is not as bad as admission. She needs to follow up with Dr. Mcarthur on 06/02/[address] Hardin 2 days, on 05/30/2019. She already has an appointment for that. I will not prescribe pain medication because she has enough at home, but I will give her a prescription for anticoagulation for 30 more days to avoid blood clots and DVTs at home. I had a large conversation with the patient about mobilization and physical therapy at home. She did not want to go to a rehab center. She states that she cannot go to an outpatient rehab facility either, so we set up home health with physical therapy at home, and also we will provide a front wheel walker and bedside commode for her. At the moment of discharge, this patient was in a stable medical condition. She was tolerating p.o. She was moving her left lower extremity without any complications, but pain. DISCHARGE PHYSICAL EXAM: Vital signs: Temperature 98.2 degrees, pulse 104, respiratory rate 20, blood pressure 108/70, oxygen saturation 99 on room air HEENT: Head normocephalic, no trauma, PERRLA. Neck: Supple. No JVD. No masses. Central trachea. Chest: Clear to auscultation. No wheezing. No rales. Abdomen: Soft, nontender, nondistended. No hepatosplenomegaly. Extremities: Left lower extremity edema, mostly in the thigh area. Left hip is painful to palpation and mobilization. She moves all 4 extremities spontaneously. She is able to move her toes and right side of the body as well. No signs of neurovascular lesions. The wound looks clean and is covered with a dressing. Neurological: Patient is alert. She is oriented x3. No focal deficits. LABORATORY: WBC 6.1, hemoglobin 8.2, hematocrit 25.8, platelet count 361,000. Sodium 140, potassium 4, chloride 106, bicarbonate 6, BUN 0.5, glucose 104, calcium 7.4. DISCHARGE MEDICATIONS: 1. Acetaminophen 650 mg p.o. q.6 hours as needed. 2. Fentanyl patch every 72 hours as directed. 3. Gabapentin 600 mg p.o. t.i.d. 4. Percocet 10 one tablet p.o. q. 4 to 6 hours as needed for pain. 5. Xarelto 10 mg p.o. daily x30 days. 6. Yisel-Colace 1 tablet p.o. b.i.d. 7. Tamoxifen 20 mg p.o. daily. FOLLOWUP: Again, follow up with Dr. Mcarthur on 06/02/2019 and follow up with Dr. Kendrick Hardin on 05/30/2019. This appointment has been already set. TIME DISCHARGING THIS PATIENT: 30 minutes. cc: Ash Tran MD
== END 2019-05-28 12:07 | disposition home health service (06) | DRG 481 ==
LOC: SUPCPDRO → ED 08:36 → SUATTDRO 10:38 → 4N 10:38
PROVIDERS: ATTEND Internal Medicine